=== PATIENT | male | born 1955 | race Caucasian/White ===

== ENCOUNTER 2021-10-30 14:19 | Inpatient (IN) | payer MEDICARE ==
[~2021-10-30] VITALS: Ht 177.8 cm; Wt 61.7 kg
[~2021-10-30 14:19] MED LIST: B COMPLEX1 CAP PO; CLARITIN10 MG PO; Kenalog 0.5% Oi15 GM PO; LISINOPRIL5 MG PO; LORATADINE10 M1 PO; MEDROL DOSEPAK4 MG PO; PROAIR HFA0.09 MG/AC INH; SPIRIVA18 MCG PO; SYMBICORT1 AE1 INH
[2021-10-30 14:36] VITALS: BP 103/79
[2021-10-30 19:57] LABS: ABG BASE EXCESS -1.1 mmol/L (-2.0-2.0); ARTERIAL BLOOD GAS PH 7.418 (7.35-7.45); ARTERIAL BLOOD GAS PO2 74.4 (80-90)
[2021-10-30 19:58] LABS: BASO # 0.1 10*3/uL (0.0-0.1); BASO % 0.6 % (0.0-1.0); EOS # 0.4 10*3/uL (0.0-0.4); EOS % 4.1 % (1.0-4.0); HEMATOCRIT 48.6 % (42.0-52.0); LYMPH # 1.7 10*3/uL (1.3-4.4); LYMPH % 19.1 % (27.0-41.0); MEAN CELL VOLUME 88.8 fl (80.0-94.0); MEAN CORPUSCULAR HGB CONC 33.7 g/dl (33.0-37.0); MEAN PLATELET VOLUME 9.1 fl (9.6-12.3); MONO # 0.7 10*3/uL (0.1-1.0); MONO % 7.5 % (3.0-9.0); NEUT # 5.9 10*3/uL (2.3-7.9); NEUT % 68.5 % (47.0-73.0); PLATELET COUNT AUTOMATED 245 10*3/uL (130-400); RED BLOOD COUNT 5.47 10*6/uL (4.50-5.90); RED CELL DISTRI WIDTH 13.2 % (0-14.5); WHITE BLOOD COUNT 8.6 10*3/uL (4.8-10.8)
[2021-10-30 20:18] LABS: ACT PARTIAL THROMBO TIME 31.6 SECONDS (20.0-32.1)
[2021-10-30 20:22] LABS: ALKALINE PHOSPHATASE 125 U/L (45-117); BUN 16 mg/dl (7-24); CHLORIDE 102 mmol/L (98-107); CREATININE 0.83 mg/dL (0.70-1.30); POTASSIUM 4.3 mmol/L (3.5-5.1); SGOT/AST 15 IU/L (3-35); SGPT/ALT 14 U/L (12-78); SODIUM 134 mmol/L (136-145); TOTAL PROTEIN 7.9 gm/dL (6.4-8.2)
[2021-10-31] VITALS (8 sets, daily range): BP systolic 109–150; BP diastolic 60–92
[2021-10-31 06:05] LABS: BASO % 0.5 % (0.0-1.0); HEMATOCRIT 47.3 % (42.0-52.0); LYMPH # 0.7 10*3/uL (1.3-4.4); LYMPH % 16.5 % (27.0-41.0); MEAN CELL VOLUME 89.6 fl (80.0-94.0); MEAN CORPUSCULAR HGB 29.9 pg (27.0-31.0); MEAN CORPUSCULAR HGB CONC 33.4 g/dl (33.0-37.0); MEAN PLATELET VOLUME 9.3 fl (9.6-12.3); MONO # 0.1 10*3/uL (0.1-1.0); MONO % 1.5 % (3.0-9.0); NEUT # 3.3 10*3/uL (2.3-7.9); NEUT % 81.3 % (47.0-73.0); PLATELET COUNT AUTOMATED 244 10*3/uL (130-400); RED BLOOD COUNT 5.28 10*6/uL (4.50-5.90); RED CELL DISTRI WIDTH 13.2 % (0-14.5); WHITE BLOOD COUNT 4.1 10*3/uL (4.8-10.8)
[2021-10-31 06:16] LABS: BUN 18 mg/dl (7-24); CHLORIDE 101 mmol/L (98-107); CHOLESTEROL 204 mg/dL (<200); CREATININE 1.01 mg/dL (0.70-1.30); POTASSIUM 4.4 mmol/L (3.5-5.1); SGOT/AST 17 IU/L (3-35); SGPT/ALT 14 U/L (12-78); SODIUM 133 mmol/L (136-145); TRIGLYCERIDES 59 mg/dl (<150)
[2021-10-31 06:21] LABS: ALKALINE PHOSPHATASE 121 U/L (45-117); LDL CHOLESTEROL 124 mg/dL (9-159); THYROID STIM HORMONE (HS) 0.227 uIU/ml (0.358-4.75); TOTAL PROTEIN 7.6 gm/dL (6.4-8.2)
[2021-10-31] MEDS ORDERED: REMERON30 M1 PO (13:12)
[2021-10-31] MEDS ORDERED: TRELEGY ELLIPT1 EACH INH (13:15)
[2021-10-31] MEDS ORDERED: VENT7GM INH (13:16)
[2021-10-31 15:35] LABS: ABG BASE EXCESS -2.5 mmol/L (-2.0-2.0); ARTERIAL BLOOD GAS PH 7.413 (7.35-7.45); ARTERIAL BLOOD GAS PO2 66.3 (80-90)
[2021-11-01] VITALS: BP 106/57
[2021-11-01 05:59] LABS: BUN 15 mg/dl (7-24); CHLORIDE 104 mmol/L (98-107); CREATININE 0.82 mg/dL (0.70-1.30); POTASSIUM 4.1 mmol/L (3.5-5.1); SODIUM 135 mmol/L (136-145)
[2021-11-01 06:09] LABS: BASO % 0.1 % (0.0-1.0); EOS % 0.1 % (1.0-4.0); HEMATOCRIT 42.1 % (42.0-52.0); LYMPH # 0.9 10*3/uL (1.3-4.4); LYMPH % 8.8 % (27.0-41.0); MEAN CELL VOLUME 89.8 fl (80.0-94.0); MEAN CORPUSCULAR HGB 30.1 pg (27.0-31.0); MEAN CORPUSCULAR HGB CONC 33.5 g/dl (33.0-37.0); MEAN PLATELET VOLUME 9.6 fl (9.6-12.3); MONO # 1.1 10*3/uL (0.1-1.0); MONO % 11.4 % (3.0-9.0); NEUT # 7.7 10*3/uL (2.3-7.9); NEUT % 79.3 % (47.0-73.0); PLATELET COUNT AUTOMATED 236 10*3/uL (130-400); RED BLOOD COUNT 4.69 10*6/uL (4.50-5.90); RED CELL DISTRI WIDTH 13.3 % (0-14.5); WHITE BLOOD COUNT 9.7 10*3/uL (4.8-10.8)
[2021-11-01 08:00] VITALS: BP 92/56
[2021-11-01 12:00] VITALS: BP 95/60
[2021-11-01 16:00] VITALS: BP 140/78
[2021-11-01 20:00] VITALS: BP 131/82
[2021-11-02] VITALS: BP 112/58
[2021-11-02 04:00] VITALS: BP 112/58
[2021-11-02 05:50] LABS: BUN 16 mg/dl (7-24); CHLORIDE 102 mmol/L (98-107); CREATININE 0.78 mg/dL (0.70-1.30); SODIUM 136 mmol/L (136-145)
[2021-11-02 06:06] LABS: EOS % 0.1 % (1.0-4.0); HEMATOCRIT 42.6 % (42.0-52.0); LYMPH # 0.9 10*3/uL (1.3-4.4); LYMPH % 10.2 % (27.0-41.0); MEAN CELL VOLUME 92.2 fl (80.0-94.0); MEAN CORPUSCULAR HGB CONC 33.6 g/dl (33.0-37.0); MEAN PLATELET VOLUME 9.8 fl (9.6-12.3); MONO # 0.9 10*3/uL (0.1-1.0); MONO % 10.3 % (3.0-9.0); NEUT % 79.1 % (47.0-73.0); PLATELET COUNT AUTOMATED 214 10*3/uL (130-400); RED BLOOD COUNT 4.62 10*6/uL (4.50-5.90); RED CELL DISTRI WIDTH 13.4 % (0-14.5); WHITE BLOOD COUNT 8.9 10*3/uL (4.8-10.8)
[2021-11-02 08:00] VITALS: BP 116/57
[2021-11-02 12:00] VITALS: BP 123/70
[2021-11-02 16:00] VITALS: BP 114/67
[2021-11-02 20:00] VITALS: BP 140/84
[2021-11-03] VITALS: BP 100/66
[2021-11-03 08:00] VITALS: BP 110/71
[2021-11-03 12:00] VITALS: BP 197/90
[2021-11-03 16:00] VITALS: BP 129/56
[2021-11-03 20:00] VITALS: BP 155/83
[2021-11-04] VITALS: BP 120/65
[2021-11-04 08:00] VITALS: BP 158/82
[2021-11-04 12:00] VITALS: BP 124/78
[2021-11-04 16:00] VITALS: BP 104/70
[2021-11-04 20:00] VITALS: BP 146/70
[2021-11-05] VITALS: BP 115/72
[2021-11-05 08:00] VITALS: BP 141/91
[2021-11-05 12:00] VITALS: BP 108/60
[2021-11-05 16:00] VITALS: BP 122/78
[2021-11-05 20:00] VITALS: BP 126/86
[2021-11-06] VITALS: BP 108/59
[2021-11-06 04:54] LABS: BASO % 0.1 % (0.0-1.0); EOS # 0.1 10*3/uL (0.0-0.4); EOS % 0.5 % (1.0-4.0); HEMATOCRIT 43.2 % (42.0-52.0); LYMPH # 1.6 10*3/uL (1.3-4.4); LYMPH % 15.7 % (27.0-41.0); MEAN CELL VOLUME 91.9 fl (80.0-94.0); MEAN CORPUSCULAR HGB 30.9 pg (27.0-31.0); MEAN CORPUSCULAR HGB CONC 33.6 g/dl (33.0-37.0); MONO # 1.1 10*3/uL (0.1-1.0); MONO % 10.4 % (3.0-9.0); NEUT # 7.4 10*3/uL (2.3-7.9); NEUT % 72.8 % (47.0-73.0); PLATELET COUNT AUTOMATED 223 10*3/uL (130-400); WHITE BLOOD COUNT 10.1 10*3/uL (4.8-10.8)
[2021-11-06 06:22] LABS: CREATININE 0.83 mg/dL (0.70-1.30)
[2021-11-06 08:00] VITALS: BP 130/70
[2021-11-06 12:00] VITALS: BP 134/67
[2021-11-06] MEDS ORDERED: AMOX-CLAV 875-1 EACH PO (15:31)
[2021-11-06] MEDS ORDERED: MUCINEX ER600 MG PO (15:31)
== END 2021-11-06 17:14 | DRG 871 ==
LOC: ED 14:19 → EDHOLD 21:49 → 4E 21:49
PROVIDERS: Emergency Medicine; Family Medicine; Internal Medicine; Internal Medicine Critical Care Medicine; Student in an Organized Health Care Education/Training Program; ADMIT Internal Medicine; ATTEND Internal Medicine
DX: A41.9 Sepsis, unspecified organism (principal); J18.9 Pneumonia, unspecified organism; J96.01 Acute respiratory failure with hypoxia; J44.1 Chronic obstructive pulmonary disease with (acute) exacerbation; E87.1 Hypo-osmolality and hyponatremia; J44.0 Chronic obstructive pulmonary disease with (acute) lower respiratory infection; Z20.822 Contact with and (suspected) exposure to COVID-19; R54 Age-related physical debility; R65.20 Severe sepsis without septic shock; E80.6 Other disorders of bilirubin metabolism; R73.9 Hyperglycemia, unspecified; I10 Essential (primary) hypertension; F32.A Depression, unspecified; G47.00 Insomnia, unspecified; J20.9 Acute bronchitis, unspecified; Z79.51 Long term (current) use of inhaled steroids; Z79.899 Other long term (current) drug therapy